=== PATIENT | male | born 1975 | race Caucasian/White ===

== ENCOUNTER 2024-09-18 07:46 | Day surgery (SDC) | payer OTHER ==
[~2024-09-18 07:46] MED LIST: Midazolam 1 MG/ML 2 ML SDV ONE; Ondansetron 4 MG/2 ML SDV ONE; Sodium Chloride 0.9% 10 ML Syringe FLUSH PRN; Sodium Chloride 0.9% 10 ML Syringe FLUSH SCH; dexmedeTOMIDine HCl 200 MCG/2 ML SDV ONE; propofoL 500 MG/50 ML 50 ML ONE
[2024-09-18] MEDS: Lactated Ringers 1,000 ML IV SCH (08:20)
[2024-09-18] MEDS: Pregabalin 25 MG Cap PO ONE (08:44)
[2024-09-18] MEDS: Acetaminophen 325 MG Tab PO ONE (08:44)
[2024-09-18] MEDS: oxyCODONE ER 10 MG TAB.ER PO ONE (08:45)
[2024-09-18] MEDS ORDERED: ceFAZolin 2 GM Vial ONE (09:03)
[2024-09-18] MEDS ORDERED: Ondansetron 4 MG/2 ML SDV IVPUSH PRN (09:28)
[2024-09-18] MEDS ORDERED: Lactated Ringers 1,000 ML ONE (09:34)
[2024-09-18] MEDS ORDERED: propofoL 500 MG/50 ML 50 ML ONE (09:45)
[2024-09-18] MEDS: VANCOmycin 1 GM SDV ONE (10:17)
[2024-09-18] MEDS: Morphine 8 MG, EPINEPHrine 0.3 MG, Cefuroxime 750 MG, Ketorolac 30 MG, Sodium Chloride ... PRN (10:17)
[2024-09-18] MEDS: Tranexamic Acid 1,000 MG/10 ML Vial ONE (10:17)
[2024-09-18] MEDS: fentaNYL 100 MCG/2 ML SDV IVPUSH PRN (10:52)
[2024-09-18] MEDS: Ketorolac 30 MG/ML SDV IVPUSH ONE (10:57)
[2024-09-18] MEDS: HYDROmorphone 0.5 MG/0.5 ML Syringe IVPUSH PRN (11:12)
[2024-09-18] MEDS: oxyCODONE 5 MG Tab PO PRN (11:52)
== END 2024-09-18 15:30 | disposition home or self-care (01) ==
LOC: JD.SDS 07:46
PROVIDERS: ATTEND Orthopaedic Surgery
DX: M16.12 Unilateral primary osteoarthritis, left hip (principal); E11.9 Type 2 diabetes mellitus without complications; E78.5 Hyperlipidemia, unspecified; Z87.891 Personal history of nicotine dependence; Z79.4 Long term (current) use of insulin; Z79.899 Other long term (current) drug therapy; Z88.8 Allergy status to other drugs, medicaments and biological substances
CPT/HCPCS: 0055T; 27130; 36415; 73501; 86850; 86900; 86901; 97116; 97161; A9270; C1713; C1776; J0171; J0690; J0697; J1885; J2250; J2272; J2405; J2704; J3010; J7120; J3490